=== PATIENT | female | born 1955 | race Caucasian/White ===

== ENCOUNTER 2023-03-14 10:54 | Inpatient (IN) ==
[2023-03-14] MEDS ORDERED: MORPHINE SULFATE INJ 4 MG ONE ×2 (11:05→12:33)
[2023-03-14] MEDS ORDERED: ZOFRAN INJ 4 MG VIAL ONE ×2 (11:05→12:33)
[2023-03-14] MEDS ORDERED: NS 500 ML IV 500 ML IV ONE ×2 (11:05→11:06)
[2023-03-14] MEDS ORDERED: MORPHINE SULFATE INJ 4 MG IVP ONE ×2 (11:06→12:32)
[2023-03-14] MEDS ORDERED: ZOFRAN INJ 4 MG VIAL IVP ONE ×2 (11:06→12:32)
--- NOTE | 2023-03-14 11:06 | ED.ABDFE ---
HPI Time Seen Time Seen by Provider: 03/14/23 11:05 Complaint Doctors Chief Complaint Comments: 67 y/o female brought in by EMS for evaluation. Started feeling poorly 2 days ago, with onset of nausea, voiting and diarrhea. Symptoms have persisted. Now with diffuse abdominal pain. + sharp, constant, does not radiate. + worse with moving, palpation. Nothing makes it better. Denies fever, chills, URI symptoms, urinary difficulties. + distant h/o cholecystectomy, hysterectomy. Reviewed Nurses Notes Review: Yes Source History Provided: Patient Mode of arrival Mode of Arrival: EMS PMH PMH Past Medical History: Anxiety, Arthritis and Depression Past Surgical History: Yes Surgical History: , Hysterectomy and Ortho Surgery Family History Family Medical History: Diabetes Mellitus, MD, Coronary Artery Disease, Heart Failure and Hypertension Social History Does patient currently use any type of tobacco product: Yes Type of Tobacco Use: Cigarettes Packs per day or dips/chews per day: 2 PPD Do you use any recreational Drugs:: No ROS Review of Systems Constitutional: Weakness Eyes: No Symptoms Reported ENTM: No Symptoms Reported Respiratoy: No Symptoms Reported Cardiovascular: No Symptoms Reported Gastrointestinal/Abdominal: See HPI Genitourinary: No Symptoms Reported Neurological: Weakness Musculoskeletal: No Symptoms Reported Integumentary: No Symptoms Reported Hematologic/Lymphatic: No Symptoms Reported All Other Systems: Reviewed and Negative PE Vital Signs Vitals: Vital Signs Temperature 99.1 F Pulse Rate 112 Pulse Rate 112 Pulse Rate 112 Pulse Rate 111 Pulse Rate 111 Pulse Rate 111 Pulse Rate 111 Pulse Rate 105 Pulse Rate 103 Pulse Rate 100 Pulse Rate 100 Pulse Rate 99 Pulse Rate 95 Pulse Rate 102 Pulse Rate 100 Pulse Rate 105 Pulse Rate 101 Pulse Rate 101 Respiratory Rate 20 Respiratory Rate 20 Respiratory Rate 20 Respiratory Rate 20 Respiratory Rate 20 Respiratory Rate 20 Blood Pressure 158/85 Blood Pressure 148/82 Blood Pressure 161/78 Blood Pressure 161/78 Blood Pressure 158/77 Blood Pressure 186/98 Blood Pressure 194/101 Blood Pressure 223/102 Blood Pressure 194/146 Blood Pressure 206/100 Blood Pressure 184/92 Blood Pressure 206/100 O2 Sat by Pulse Oximetry 94 O2 Sat by Pulse Oximetry 94 O2 Sat by Pulse Oximetry 93 O2 Sat by Pulse Oximetry 93 O2 Sat by Pulse Oximetry 93 O2 Sat by Pulse Oximetry 95 O2 Sat by Pulse Oximetry 96 O2 Sat by Pulse Oximetry 96 O2 Sat by Pulse Oximetry 95 O2 Sat by Pulse Oximetry 95 O2 Sat by Pulse Oximetry 95 O2 Sat by Pulse Oximetry 96 O2 Sat by Pulse Oximetry 96 O2 Sat by Pulse Oximetry 93 O2 Sat by Pulse Oximetry 88 O2 Sat by Pulse Oximetry 92 O2 Sat by Pulse Oximetry 92 O2 Sat by Pulse Oximetry 92 03/14/23 10:55 03/14/23 11:16 03/14/23 10:55 Temperature 99.1 F Pulse Rate 101 H Respiratory Rate 20 20 Respiratory Effort Normal Non-Labored O2 Sat by Pulse Oximetry 92 L Oxygen Delivery Method Room Air Oxygen Flow Rate Blood Pressure 206/100 184/92 Blood Pressure Mean 132 Weight 139 lb 03/14/23 10:58 03/14/23 11:00 03/14/23 11:00 Temperature Pulse Rate 101 H 105 H Respiratory Rate Respiratory Effort O2 Sat by Pulse Oximetry 92 L 92 L Oxygen Delivery Method Oxygen Flow Rate Blood Pressure 206/100 Blood Pressure Mean 144 Weight 03/14/23 11:16 03/14/23 12:00 03/14/23 11:30 Temperature Pulse Rate 100 H Respiratory Rate 20 Respiratory Effort O2 Sat by Pulse Oximetry 88 L Oxygen Delivery Method Oxygen Flow Rate Blood Pressure 194/146 Blood Pressure Mean 166 Weight 03/14/23 11:30 03/14/23 11:45 03/14/23 11:46 Temperature Pulse Rate 102 H 95 H Respiratory Rate 20 Respiratory Effort Normal Non-Labored O2 Sat by Pulse Oximetry 93 L 96 Oxygen Delivery Method Oxygen Flow Rate Blood Pressure Blood Pressure Mean Weight 03/14/23 12:00 03/14/23 12:05 03/14/23 12:05 Temperature Pulse Rate 99 H 100 H Respiratory Rate Respiratory Effort O2 Sat by Pulse Oximetry 96 95 Oxygen Delivery Method Oxygen Flow Rate Blood Pressure 223/102 Blood Pressure Mean 146 Weight 03/14/23 12:06 03/14/23 12:06 03/14/23 12:15 Temperature Pulse Rate 100 H Respiratory Rate Respiratory Effort O2 Sat by Pulse Oximetry 95 Oxygen Delivery Method Oxygen Flow Rate Blood Pressure 194/101 186/98 Blood Pressure Mean 142 136 Weight 03/14/23 12:15 03/14/23 12:39 03/14/23 12:38 Temperature Pulse Rate 103 H 105 H Respiratory Rate 20 Respiratory Effort Normal Non-Labored O2 Sat by Pulse Oximetry 95 96 Oxygen Delivery Method Nasal Cannula Oxygen Flow Rate 2 Blood Pressure Blood Pressure Mean Weight 03/14/23 12:52 03/14/23 13:07 03/14/23 13:15 Temperature Pulse Rate 111 H 111 H Respiratory Rate Respiratory Effort O2 Sat by Pulse Oximetry 96 95 Oxygen Delivery Method Oxygen Flow Rate Blood Pressure 158/77 Blood Pressure Mean 111 Weight 03/14/23 13:15 03/14/23 13:30 03/14/23 13:30 Temperature Pulse Rate 111 H 111 H Respiratory Rate Respiratory Effort O2 Sat by Pulse Oximetry 93 L 93 L Oxygen Delivery Method Oxygen Flow Rate Blood Pressure 161/78 Blood Pressure Mean 112 Weight 03/14/23 13:30 03/14/23 13:36 03/14/23 13:45 Temperature Pulse Rate 112 H Respiratory Rate Respiratory Effort O2 Sat by Pulse Oximetry 93 L Oxygen Delivery Method Oxygen Flow Rate Blood Pressure 161/78 148/82 Blood Pressure Mean 112 110 Weight 03/14/23 13:48 03/14/23 14:00 03/14/23 13:09 Temperature Pulse Rate 112 H 112 H Respiratory Rate 20 Respiratory Effort Normal Non-Labored O2 Sat by Pulse Oximetry 94 L 94 L Oxygen Delivery Method Oxygen Flow Rate Blood Pressure Blood Pressure Mean Weight 03/14/23 14:00 Temperature Pulse Rate Respiratory Rate Respiratory Effort O2 Sat by Pulse Oximetry Oxygen Delivery Method Nasal Cannula Oxygen Flow Rate 2 Blood Pressure 158/85 Blood Pressure Mean 116 Weight General General Appearance: Alert and Other (appears uncomfortable) Eyes Eye exam: Normal Appearance ENT ENT Exam: Mucous Membranes Moist Neck Neck Exam: Normal Inspection Respiratory Respiratory Exam: Normal Lung Sounds Bilat; negative Accessory Muscle Use or Respiratory Distress Cardiovascular Cardiovascular Exam: Regular Rate, Normal Rhythm and Normal Heart Sounds Abdominal Exam Abdominal Exam: Soft and Tenderness (worse across lower abdomen, with guarding and rebound, LLQ > RLQ. + increased tympany. ) Back Back Exam: Normal Inspection Extremeties Extremities Exam: Normal Inspection; negative Edema Neurologic Neurological Exam: Alert, Oriented X3 and CN II-XII Intact; negative Motor Sensory Deficit Skin Skin Exam: Warm and Dry COURSE Treatment Treatment: 67 y/o female with 2 days of N/V/D and worsening abdominal pain. W/u initiated. Pt given IV fluids, IV morphine/zofran. BP remaining elevated. Pt given IV hydralazine. CXR with bilateral increased marking, c/w chronic interstitial fibrotic changes, but radiology reads as possible , worsening bilateral pneumonia. Pt given IV rocephin to cover. Labs show an elevated lipase, alk phos. CT abd/pelvis ordered, has changes c/w acute pancreatitis, but also numerous hypodense liver lesions, c/w metastatic disease. + severe lumbar bones c/w bony mets. Pt admitted for treatment of acute pancreatitis. Discussed admission with Dr York prior to CT, tammy give him update of abnormal CT findings. ROR Labs Reviewed Laboratory Results Reviewed?: Yes Result Diagrams: 03/14/23 11:23 03/14/23 11:23 Laboratory: WBC 18.2 X10^3/uL (3.6-10.0) H 03/14/23 11:23 RBC 3.82 X10^6/uL (3.5-5.4) 03/14/23 11:23 Hgb 12.5 g/dL (12.0-16.0) 03/14/23 11:23 Hct 37.2 % (36.0-47.0) 03/14/23 11:23 MCV 97.2 fL (80.0-100.0) 03/14/23 11:23 MCH 32.8 pg (27.0-34.0) 03/14/23 11:23 MCHC 33.7 g/dL (33.0-35.0) 03/14/23 11:23 RDW 14.3 % (11.6-16.5) 03/14/23 11:23 Plt Count 358 X10^3/uL (150.0-450.0) 03/14/23 11:23 MPV 7.8 fL (7.4-11.0) 03/14/23 11:23 Neut % (Auto) 87.3 % (42.0-75.0) H 03/14/23 11:23 Lymph % (Auto) 6.8 % (21.0-51.0) L 03/14/23 11:23 Graves % (Auto) 5.8 % (0.0-13.0) 03/14/23 11:23 Eos % (Auto) 0.0 % (0.9-2.9) L 03/14/23 11:23 Baso % (Auto) 0.1 % (0.2-1.0) L 03/14/23 11:23 Neut # (Auto) 15.8 x10^3/uL (2.2-4.8) H 03/14/23 11:23 Lymph # (Auto) 1.2 X10^3/uL (1.3-2.9) L 03/14/23 11:23 Graves # (Auto) 1.1 x10^3/uL (0.3-0.8) H 03/14/23 11:23 Eos # (Auto) 0.0 x10^3/uL (0.0-0.2) 03/14/23 11:23 Baso # (Auto) 0.0 X10^3/uL (0.0-0.1) 03/14/23 11:23 Absolute Nucleated RBC 0.0 /100WBC 03/14/23 11:23 Sodium 138 mmol/L (136-145) 03/14/23 11:23 Corrected Sodium TNP 03/14/23 11:23 Potassium 5.0 mmol/L (3.5-5.1) 03/14/23 11:23 Chloride 103 mmol/L (98-107) 03/14/23 11:23 Carbon Dioxide 25.2 mmol/L (21-32) 03/14/23 11:23 BUN 27 mg/dL (7-18) H 03/14/23 11:23 Creatinine 0.98 mg/dL (0.55-1.02) 03/14/23 11:23 Est GFR (MDRD) Af Amer > 60 (>60) 03/14/23 11:23 Est GFR (MDRD) Non-Af 60 (>60) 03/14/23 11:23 Glucose 103 mg/dL (65-99) H 03/14/23 11:23 Calcium 8.8 mg/dL (8.5-10.1) 03/14/23 11:23 Corrected Calcium 9.6 mg/dL (8.5-10.1) 03/14/23 11:23 Total Bilirubin 0.30 mg/dL (0.2-1.0) 03/14/23 11:23 AST 59 Units/L (15-37) H 03/14/23 11:23 ALT 57 Units/L (12-78) 03/14/23 11:23 Alkaline Phosphatase 296 Units/L (46-116) H 03/14/23 11:23 Total Protein 7.5 g/dL (6.4-8.2) 03/14/23 11:23 Albumin 3.0 g/dL (3.4-5.0) L 03/14/23 11:23 Globulin 4.5 g/dL (2.5-4.5) 03/14/23 11:23 Albumin/Globulin Ratio 0.7 Ratio (1.1-2.1) L 03/14/23 11:23 Lipase 5869 Units/L (73-393) H 03/14/23 11:23 XRAY XRAY Interpreted by: Both X-ray Results: see remarks in "Course" Opioid Opioid Risk Tool Total: 0 Total Score Risk Category: Low Risk Copyright: Sanjeev MARIA predicting aberrant behaviors Discharge Plan Diagnosis Discharge Problem: Acute pancreatitis, Metastatic disease Discharge Plan Patient Disposition: ADMITTED INPATIENT Condition: Stable Orders to Discharge Patient Discharge Orders: Transfer (Routine); Ordered 03/14/23 Ordered By: Luke Barakat
[2023-03-14 11:34] LABS: BASOPHILS % (AUTO) 0.1 % (0.2-1.0); HEMATOCRIT 37.2 % (36.0-47.0); HEMOGLOBIN 12.5 g/dL (12.0-16.0); LYMPHOCYTES # (AUTO) 1.2 X10^3/uL (1.3-2.9); LYMPHOCYTES % (AUTO) 6.8 % (21.0-51.0); MEAN CORPUSCULAR HEMOGLOBIN 32.8 pg (27.0-34.0); MEAN CORPUSCULAR HGB CONC 33.7 g/dL (33.0-35.0); MEAN CORPUSCULAR VOLUME 97.2 fL (80.0-100.0); MEAN PLATELET VOLUME 7.8 fL (7.4-11.0); MONOCYTES # (AUTO) 1.1 x10^3/uL (0.3-0.8); MONOCYTES % (AUTO) 5.8 % (0.0-13.0); NEUTROPHILS # (AUTO) 15.8 x10^3/uL (2.2-4.8); NEUTROPHILS % (AUTO) 87.3 % (42.0-75.0); PLATELET COUNT 358 X10^3/uL (150.0-450.0); RED BLOOD COUNT 3.82 X10^6/uL (3.5-5.4); RED CELL DISTRIBUTION WIDTH 14.3 % (11.6-16.5); WHITE BLOOD COUNT 18.2 X10^3/uL (3.6-10.0)
--- NOTE | 2023-03-14 11:39 | RAD ---
HISTORYVOMITING, COPDSTUDYCHEST, 1 VIEWCOMPARISONNone availableFINDINGSThe trachea is midline. The cardiac silhouette is enlarged with a tortuous thoracic aorta. Increased interstitial changes of the right and left tim thorax are observed with developing airspace opacities of the right infrahilar region in the right upper lobe. The findings are consistent with multifocal pneumonia with superimposed chronic interstitial lung disease. The bony thorax is unremarkable.IMPRESSIONMultifocal pneumonia with superimposed chronic interstitial lung changes. Continued follow-up is recommendedElectronically signed by: JUAN RODRIGES (Mar 14, 2023 11:38:05)
[2023-03-14] MEDS ORDERED: ROCEPHIN VIAL 1 GRAM 1 G in NS 100 ML IV 100 ML IV ONE (11:47)
[2023-03-14] MEDS ORDERED: ROCEPHIN VIAL 1 GRAM ONE (11:48)
[2023-03-14] MEDS ORDERED: NS 100 ML IV 100 ML ONE (11:48)
[2023-03-14] MEDS ORDERED: APRESOLINE INJ 20 MG VIAL IVP ONE (12:07)
[2023-03-14] MEDS ORDERED: APRESOLINE INJ 20 MG VIAL ONE (12:07)
[2023-03-14 12:11] LABS: ALANINE AMINOTRANSFERASE 57 Units/L (12-78); ALKALINE PHOSPHATASE 296 Units/L (46-116); ASPARTATE AMINO TRANSFERASE 59 Units/L (15-37); BLOOD UREA NITROGEN 27 mg/dL (7-18); CALCIUM 8.8 mg/dL (8.5-10.1); CARBON DIOXIDE 25.2 mmol/L (21-32); CHLORIDE 103 mmol/L (98-107); COR CA(FOR HYPOALB) 9.6 mg/dL (8.5-10.1); CREATININE 0.98 mg/dL (0.55-1.02); GLUCOSE 103 mg/dL (65-99); SODIUM 138 mmol/L (136-145); TOTAL PROTEIN 7.5 g/dL (6.4-8.2); eGFR NON BLACK RACES 60 (>60)
[2023-03-14 12:22] LABS: LIPASE 5869 Units/L (73-393)
[2023-03-14] MEDS ORDERED: D5 1/2 NS 1,000 ML 1,000 ML IV ONE (14:13)
[2023-03-14] MEDS ORDERED: ZANAFLEX PO PRN (14:20)
[2023-03-14] MEDS: D5 1/2 NS 1,000 ML 1,000 ML IV SCH (14:26)
--- NOTE | 2023-03-14 14:40 | CT ---
HISTORYNausea, abdominal painSTUDYCT abdomen pelvis with contrastTechnique: Axial post-contrast images with coronal and sagittal reformats. Dose reduction procedures were used with mA/kv adjusted for body size.COMPARISONNoneFINDINGSThere is a small right pleural effusion present. The lung bases are clear with the exception of some interstitial lung changes in the right lung base. There is a small pericardial effusion maximum with 10 mm. The liver is diffusely involved with multiple areas of decreased attenuation ranging in size from 1 cm to 4.1 cm. Findings are most consistent with diffuse hepatic metastatic disease. Patient is status post cholecystectomy. The spleen and left adrenal gland are normal. There is an indeterminate 3.6 x 2.6 cm right adrenal mass possibly a metastasis. This could be further evaluated with MRI or at the time of PET-CT if the patient has a PET-CT. The pancreas is overall prominent but not grossly enlarged. There does appear to be some peripancreatic inflammation and fluid suspicious for developing acute pancreatitis. The kidneys are unobstructed and without stones or masses. No ureteral calculi are identified. Calcific atherosclerotic changes present in a nondilated abdominal aorta. No intraperitoneal or retroperitoneal lymphadenopathy of significance is identified. The appendix is not identified with absolute certainty. There are no secondary signs of appendicitis present. There are no findings suggestive of enteritis, colitis, or diverticulitis. Examination of the pelvis demonstrated no evidence for pelvic masses, pelvic fluid, or pelvic lymphadenopathy. No bladder abnormality is identified. There are multiple small blastic lesions involving the pelvis and lumbar spine with a larger blastic lesion in L2. Findings are suspicious for bony metastatic disease.IMPRESSIONFindings consistent with acute pancreatitis without evidence for abscess, pseudocyst or necrosisDiffuse severe hepatic metastatic diseaseFindings suggestive of diffuse blastic bony metastatic disease3.6 x 2.6 cm indeterminate right adrenal mass possibly a metastatic focusSmall pericardial effusion maximum with 10 mmSmall right pleural effusionElectronically signed by: MARIUM FLANNERY (Mar 14, 2023 14:39:04)
[2023-03-14] MEDS ORDERED: KLONOPIN TAB 1 MG PO PRN (15:05)
[2023-03-14] MEDS: ROCEPHIN VIAL 1 GRAM 1 G in NS 100 ML IV 100 ML IV SCH (15:17)
[2023-03-14] MEDS: MORPHINE SULFATE INJ 4 MG IVP PRN ×2 (17:16→21:02)
[2023-03-14] MEDS: ZOFRAN INJ 4 MG VIAL IVP PRN (17:17)
[2023-03-14] MEDS: XOPENEX 1.25 MG/3 ML NEBULE NEB PRN (20:51)
[2023-03-14] MEDS: NEURONTIN CAP 300 MG PO SCH (21:55)
[2023-03-15] MEDS: XOPENEX 1.25 MG/3 ML NEBULE NEB PRN ×5 (05:12→22:07)
[2023-03-15 05:30] LABS: BASOPHILS % (AUTO) 0.3 % (0.2-1.0); EOSINOPHILS % (AUTO) 0.1 % (0.9-2.9); HEMATOCRIT 32.9 % (36.0-47.0); LYMPHOCYTES % (AUTO) 6.5 % (21.0-51.0); MEAN CORPUSCULAR HGB CONC 33.5 g/dL (33.0-35.0); MEAN CORPUSCULAR VOLUME 98.5 fL (80.0-100.0); MEAN PLATELET VOLUME 8.4 fL (7.4-11.0); MONOCYTES # (AUTO) 0.9 x10^3/uL (0.3-0.8); MONOCYTES % (AUTO) 6.1 % (0.0-13.0); PLATELET COUNT 242 X10^3/uL (150.0-450.0); RED BLOOD COUNT 3.34 X10^6/uL (3.5-5.4); RED CELL DISTRIBUTION WIDTH 14.8 % (11.6-16.5); WHITE BLOOD COUNT 14.9 X10^3/uL (3.6-10.0)
[2023-03-15] MEDS: NEURONTIN CAP 300 MG PO SCH ×4 (05:36→21:20)
[2023-03-15] MEDS: MORPHINE SULFATE INJ 4 MG IVP PRN ×3 (05:40→14:21)
[2023-03-15 05:53] LABS: ALANINE AMINOTRANSFERASE 44 Units/L (12-78); ALBUMIN 2.4 g/dL (3.4-5.0); ALKALINE PHOSPHATASE 229 Units/L (46-116); ASPARTATE AMINO TRANSFERASE 54 Units/L (15-37); BLOOD UREA NITROGEN 21 mg/dL (7-18); CALCIUM 8.2 mg/dL (8.5-10.1); CARBON DIOXIDE 24.5 mmol/L (21-32); CHLORIDE 103 mmol/L (98-107); COR CA(FOR HYPOALB) 9.5 mg/dL (8.5-10.1); CREATININE 0.92 mg/dL (0.55-1.02); GLUCOSE 92 mg/dL (65-99); POTASSIUM 4.6 mmol/L (3.5-5.1); SODIUM 137 mmol/L (136-145); TOTAL PROTEIN 6.3 g/dL (6.4-8.2); eGFR NON BLACK RACES > 60 (>60)
[2023-03-15 07:35] LABS: BILIRUBIN,URINE NEGATIVE (NEGATIVE); BLOOD/HEMOGLOBIN,URINE NEGATIVE (NEGATIVE); GLUCOSE, URINE NEGATIVE (NEGATIVE); KETONES,URINE NEGATIVE (NEGATIVE); LEUKOCYTE ESTERASE ,URINE NEGATIVE (NEGATIVE); NITRITES,URINE NEGATIVE (NEGATIVE); PROTEIN,URINE 2+ (NEGATIVE); UROBILINOGEN,URINE NORMAL (NORMAL)
[2023-03-15] MEDS: D5 1/2 NS 1,000 ML 1,000 ML IV SCH ×5 (07:47→23:43)
[2023-03-15 07:49] LABS: APPEARANCE,URINE CLEAR (CLEAR); BACTERIA,URINE TRACE /HPF (NEGATIVE); COLOR,URINE YELLOW (YELLOW); RBC,URINE 0-2 /HPF (0-3); SQUAMOUS EPITHELIAL CELL,UR RARE /HPF (NEGATIVE)
[2023-03-15] MEDS ORDERED: OMNIPAQUE 350 mg/mL 100 mL BTL 100 ML ONE (08:25)
[2023-03-15] MEDS: ROCEPHIN VIAL 1 GRAM 1 G in NS 100 ML IV 100 ML IV SCH (09:28)
--- NOTE | 2023-03-15 09:59 | CT ---
HISTORYLung cancer, metastatic diseaseSTUDYCT chest with contrastTechnique: Axial post-contrast images with coronal and sagittal reformats. Dose reduction procedures were used with mA/kv adjusted for body size.COMPARISONNoneFINDINGSExamination of the mediastinum demonstrated no evidence for mediastinal masses. Abnormal sub carinal lymphadenopathy is identified as is abnormal left hilar lymphadenopathy both likely metastatic in origin. There is a small right pleural effusion present. Those portions of the upper abdominal organs again demonstrated diffuse hepatic metastatic disease and a right adrenal mass which, although it is low in attenuation, there are some areas of increased attenuation within it making it indeterminate. MRI would be of further diagnostic value. Re-demonstrated is acute pancreatitis. Scattered blastic lesions are present throughout the thoracic spine suspicious for blastic bony metastatic disease. Thrombus is identified in a segmental arterial branch supplying the left lower lobe consistent with pulmonary thromboembolic disease. There is a pericardial effusion maximum width now 13 mm. Examination of the lung guadarrama demonstrated an irregular mass lesion in the right upper lobe measuring approximately 3.1 by 1.6 by 2.1 cm likely representing primary lung neoplasm. Diffuse interstitial changes throughout the right lung could indicate pneumonitis, atypical pneumonia, or interstitial or lymphangitic metastatic disease. Some less prominent interstitial changes are present on the left with a similar differential. There is a 6.8 mm left upper lobe pulmonary nodule which could represent a metastatic focus.IMPRESSIONIntraluminal thrombus identified in a segmental branch to the left lower lobe indicative of pulmonary thromboembolic diseaseIrregular 3.1 x 1.6 x 2.1 cm right upper lobe mass lesion likely primary lung malignancy.Sub carinal and left hilar lymphadenopathy likely metastatic in originDiffuse interstitial lung changes throughout the right lung which could represent pneumonitis, atypical pneumonia, or interstitial or lymphangitic spread of metastatic disease6.8 mm left upper lobe pulmonary nodule possibly a metastatic focusPericardial effusion maximum with 13 mmSmall right pleural effusionDiffuse hepatic metastatic diseaseRe-demonstrated is acute pancreatitisDiffuse blastic bony metastatic diseaseElectronically signed by: MARIUM FLANNERY (Mar 15, 2023 09:57:57)
[2023-03-15] MEDS ORDERED: LOVENOX INJ 40 MG SYR SC SCH (10:00)
[2023-03-15] MEDS: ZOFRAN INJ 4 MG VIAL IVP PRN (10:22)
[2023-03-15 11:15] LABS: INR 1.25 (0.8-1.3)
[2023-03-15] MEDS ORDERED: HEPARIN SODIUM INJ 5000 UNITS IVP ONE ×2 (11:20→19:40)
[2023-03-15] MEDS: HEPARIN SODIUM IN D5W 25,000 UNITS/500 ML BAG IV PRN (12:03)
--- NOTE | 2023-03-15 14:23 | DR.H&P ---
H&P History & Physical for Day of: H&P Date: 03/15/23 Chief Complaint Chief Complaint: Feeling poorly 2 days ago with nausea, vomiting and diarrhea. Allergies Allergies Allergy/AdvReac Type Severity Reaction Status Date / Time codeine Allergy Unknown Verified 03/22/22 15:05 ibuprofen Allergy Unknown Verified 03/22/22 15:06 naproxen [Aleve] Allergy Unknown Verified 03/22/22 15:06 sulfamethoxazole Allergy Unknown Verified 03/22/22 15:05 [Sulfamethoxazole-Trimethoprim] trimethoprim Allergy Unknown Verified 03/22/22 15:05 [Sulfamethoxazole-Trimethoprim] Sulfa-Mag *MINERALS & Allergy Unknown Uncoded 03/22/22 15:05 ELECTROL History of Present Illness History of Present Illness: This is a pleasant 67-year-old white female well-known to me. [facility] and [facility] yesterday after being sick for the previous 2 days with associated nausea, vomiting and diarrhea. Symptoms have persisted and now she is currently having abdominal pain that is sharp in the epigastrium and does not radiate. Pain is worse with movement and palpation nothing makes it better at this time. She does have a previous history of cholecystectomy and hysterectomy. Past Medical History Past Medical History: Anxiety, Arthritis and Depression Additional Medical History: Hx Bipolar Jeanie, PTSD, Fibromyalgia Past Surgical History Surgical History: , Cholecystectomy and Hysterectomy Family History Family Medical History: Hypertension Social History Does patient currently use any type of tobacco product: Yes Have you used tobacco products in the last 12 months: Yes Type of Tobacco Use: Cigarettes How many years tobacco product used: 20 Does any household member use tobacco: Yes Alcohol Use: None Drug Use: None Medications Home Medications: Home Medications Medication Instructions Recorded Confirmed Type Clonazepam 1 mg PO QID PRN 07/01/14 03/14/23 History gabapentin 300 mg capsule 900 mg PO TID 03/14/23 03/14/23 History promethazine 25 mg tablet 25 mg PO Q8H PRN 03/14/23 03/14/23 History quetiapine 400 mg tablet 400 mg PO QPM 03/14/23 03/14/23 History Labs Result Diagrams: 03/15/23 04:40 03/15/23 04:40 Labs: 03/15/23 05:08 Sputum - Expectorated Sputum - Final Laboratory WBC 14.9 X10^3/uL (3.6-10.0) H 03/15/23 04:40 RBC 3.34 X10^6/uL (3.5-5.4) L 03/15/23 04:40 Hgb 11.0 g/dL (12.0-16.0) L 03/15/23 04:40 Hct 32.9 % (36.0-47.0) L 03/15/23 04:40 MCV 98.5 fL (80.0-100.0) 03/15/23 04:40 MCH 33.0 pg (27.0-34.0) 03/15/23 04:40 MCHC 33.5 g/dL (33.0-35.0) 03/15/23 04:40 RDW 14.8 % (11.6-16.5) 03/15/23 04:40 Plt Count 242 X10^3/uL (150.0-450.0) 03/15/23 04:40 MPV 8.4 fL (7.4-11.0) 03/15/23 04:40 Neut % (Auto) 87.0 % (42.0-75.0) H 03/15/23 04:40 Lymph % (Auto) 6.5 % (21.0-51.0) L 03/15/23 04:40 Mcdonald % (Auto) 6.1 % (0.0-13.0) 03/15/23 04:40 Eos % (Auto) 0.1 % (0.9-2.9) L 03/15/23 04:40 Baso % (Auto) 0.3 % (0.2-1.0) 03/15/23 04:40 Neut # (Auto) 13.0 x10^3/uL (2.2-4.8) H 03/15/23 04:40 Lymph # (Auto) 1.0 X10^3/uL (1.3-2.9) L 03/15/23 04:40 Mcdonald # (Auto) 0.9 x10^3/uL (0.3-0.8) H 03/15/23 04:40 Eos # (Auto) 0.0 x10^3/uL (0.0-0.2) 03/15/23 04:40 Baso # (Auto) 0.0 X10^3/uL (0.0-0.1) 03/15/23 04:40 Absolute Nucleated RBC 0.0 /100WBC 03/15/23 04:40 PT 15.5 SECONDS (11.8-14.3) 03/15/23 11:00 INR Target Range - 03/15/23 11:00 INR 1.25 (0.8-1.3) 03/15/23 11:00 APTT 27.4 SECONDS (22.9-36.5) 03/15/23 11:00 PTT Comment - 03/15/23 11:00 Sodium 137 mmol/L (136-145) 03/15/23 04:40 Corrected Sodium TNP 03/15/23 04:40 Potassium 4.6 mmol/L (3.5-5.1) 03/15/23 04:40 Chloride 103 mmol/L (98-107) 03/15/23 04:40 Carbon Dioxide 24.5 mmol/L (21-32) 03/15/23 04:40 BUN 21 mg/dL (7-18) H 03/15/23 04:40 Creatinine 0.92 mg/dL (0.55-1.02) 03/15/23 04:40 Est GFR (MDRD) Af Amer > 60 (>60) 03/15/23 04:40 Est GFR (MDRD) Non-Af > 60 (>60) 03/15/23 04:40 Glucose 92 mg/dL (65-99) 03/15/23 04:40 Calcium 8.2 mg/dL (8.5-10.1) L 03/15/23 04:40 Corrected Calcium 9.5 mg/dL (8.5-10.1) 03/15/23 04:40 Total Bilirubin 0.20 mg/dL (0.2-1.0) 03/15/23 04:40 AST 54 Units/L (15-37) H 03/15/23 04:40 ALT 44 Units/L (12-78) 03/15/23 04:40 Alkaline Phosphatase 229 Units/L (46-116) H 03/15/23 04:40 Total Protein 6.3 g/dL (6.4-8.2) L 03/15/23 04:40 Albumin 2.4 g/dL (3.4-5.0) L 03/15/23 04:40 Globulin 3.9 g/dL (2.5-4.5) 03/15/23 04:40 Albumin/Globulin Ratio 0.6 Ratio (1.1-2.1) L 03/15/23 04:40 Lipase 5869 Units/L (73-393) H 03/14/23 11:23 Specimen Type Catherized urine 03/15/23 07:20 Urine Color Yellow (YELLOW) 03/15/23 07:20 Urine Appearance Clear (CLEAR) 03/15/23 07:20 Urine pH 5.0 (5.0 - 8.0) 03/15/23 07:20 Ur Specific [place] 1.015 (1.000-1.030) 03/15/23 07:20 Urine Protein 2+ (NEGATIVE) 03/15/23 07:20 Urine Glucose (UA) Negative (NEGATIVE) 03/15/23 07:20 Urine Ketones Negative (NEGATIVE) 03/15/23 07:20 Urine Blood Negative (NEGATIVE) 03/15/23 07:20 Urine Nitrite Negative (NEGATIVE) 03/15/23 07:20 Urine Bilirubin Negative (NEGATIVE) 03/15/23 07:20 Urine Urobilinogen Normal (NORMAL) 03/15/23 07:20 Ur Leukocyte Esterase Negative (NEGATIVE) 03/15/23 07:20 Urine RBC 0-2 /HPF (0-3) 03/15/23 07:20 Urine WBC 0-2 /HPF (0-5) 03/15/23 07:20 Ur Squamous Epith Cells Rare /HPF (NEGATIVE) 03/15/23 07:20 Urine Bacteria Trace /HPF (NEGATIVE) 03/15/23 07:20 Urine Mucus Rare /HPF (NEGATIVE) 03/15/23 07:20 Ur Culture Indicated? No/not indicated 03/15/23 07:20 Review of Systems Constitutional: Weakness and Malaise Eyes: No Symptoms Reported ENT: No Symptoms Reported Respiratory: Cough and SOB with Excertion; denies Hemoptysis Cardiovascular: No Symptoms Reported Gastrointestinal: Nausea, Vomiting, Abdominal Pain and Diarrhea; denies Melena or Hematochezia Genitourinary: Retention Musculoskeletal: No Symptoms Reported Skin: No Symptoms Reported Neurological: No Symptoms Reported Physical Exam Vital Signs: Vital Signs Temperature 98.0 F Temperature 98.8 F Pulse Rate [Right Radial] 106 Pulse Rate 113 Pulse Rate 117 Pulse Rate 118 Pulse Rate 111 Pulse Rate 112 Pulse Rate 111 Pulse Rate 109 Pulse Rate 110 Pulse Rate 113 Pulse Rate 112 Pulse Rate 113 Pulse Rate 112 Respiratory Rate 33 Respiratory Rate 34 Respiratory Rate 30 Respiratory Rate 14 Respiratory Rate 42 Respiratory Rate 38 Respiratory Rate 24 Respiratory Rate 34 Respiratory Rate 36 Respiratory Rate 32 Respiratory Rate 31 Respiratory Rate 20 Respiratory Rate 20 Respiratory Rate 18 Respiratory Rate 20 Blood Pressure [Right Arm] 94/53 Blood Pressure 122/59 O2 Sat by Pulse Oximetry 92 O2 Sat by Pulse Oximetry 92 O2 Sat by Pulse Oximetry 91 O2 Sat by Pulse Oximetry 95 O2 Sat by Pulse Oximetry 95 O2 Sat by Pulse Oximetry 95 O2 Sat by Pulse Oximetry 96 O2 Sat by Pulse Oximetry 95 O2 Sat by Pulse Oximetry 90 O2 Sat by Pulse Oximetry 93 O2 Sat by Pulse Oximetry 92 O2 Sat by Pulse Oximetry 87 O2 Sat by Pulse Oximetry 91 03/15/23 10:23 03/15/23 10:54 03/15/23 10:54 Temperature Pulse Rate 112 H Respiratory Rate 20 Respiratory Depth Normal Respiratory Effort Normal Non-Labored Normal Respiratory Pattern Normal O2 Sat by Pulse Oximetry 87 L Oxygen Delivery Method Room Air Oxygen Flow Rate 3 FIO2% 32 Blood Pressure Blood Pressure Mean Weight 03/15/23 10:53 03/15/23 10:55 03/15/23 11:00 Temperature 98.0 F Pulse Rate 113 H 112 H Respiratory Rate 20 31 H 32 H Respiratory Depth Respiratory Effort Normal Non-Labored Respiratory Pattern O2 Sat by Pulse Oximetry 92 L 93 L Oxygen Delivery Method Oxygen Flow Rate FIO2% Blood Pressure Blood Pressure Mean Weight 03/15/23 11:15 03/15/23 11:30 03/15/23 11:46 Temperature Pulse Rate 113 H 110 H 109 H Respiratory Rate 36 H 34 H 24 Respiratory Depth Respiratory Effort Respiratory Pattern O2 Sat by Pulse Oximetry 90 L 95 96 Oxygen Delivery Method Oxygen Flow Rate FIO2% Blood Pressure Blood Pressure Mean Weight 03/15/23 12:00 03/15/23 12:07 03/15/23 12:07 Temperature Pulse Rate 111 H 112 H Respiratory Rate 38 H 42 H Respiratory Depth Respiratory Effort Respiratory Pattern O2 Sat by Pulse Oximetry 95 95 Oxygen Delivery Method Oxygen Flow Rate FIO2% Blood Pressure 122/59 Blood Pressure Mean 81 Weight 03/15/23 12:15 03/15/23 12:30 03/15/23 12:45 Temperature Pulse Rate 111 H 118 H 117 H Respiratory Rate 14 30 H 34 H Respiratory Depth Respiratory Effort Respiratory Pattern O2 Sat by Pulse Oximetry 95 91 L 92 L Oxygen Delivery Method Oxygen Flow Rate FIO2% Blood Pressure Blood Pressure Mean Weight 03/15/23 13:00 03/15/23 13:00 03/15/23 11:27 Temperature Pulse Rate 113 H Respiratory Rate 33 H Respiratory Depth Normal Respiratory Effort Normal Respiratory Pattern Normal O2 Sat by Pulse Oximetry 92 L Oxygen Delivery Method Oxygen Flow Rate FIO2% Blood Pressure Blood Pressure Mean Weight 132 lb 4.438 oz Oriented: Normal, Time, Person and Place Eyes: Normal Ear: Normal Nose: Normal Respiratory: Rhonchi Throughout Cardiovascular: Normal Auscultation: Bowel Sounds: Normal Tenderness: Epigastric and Moderate Skin: Normal Musculoskeletal: Normal Psychiatric: Normal Mood Description: Calm Affect: Normal Speech Pattern: Clear and Appropriate Assessment/Plan (1) Acute pancreatitis: Status: Acute Plan: Make patient n.p.o., IV hydration and pain control. (2) Metastatic disease: Narrative Support Text: When patient had her CT of abdomen and pelvis yesterday universally found multiple liver mets, right adrenal gland lesion and bony met lesions in the pelvic bones and lumbar spine. Patient does smoke 2 packs of cigarettes per day I suspect primary lung cancer could be in the lungs. Status: Acute Plan: lungs today with IV contrast. (3) Epigastric abdominal pain: Status: Acute Plan: Pain control. (4) Nausea & vomiting: Status: Acute Plan: Ondansetron as needed. (5) Bipolar I disorder with jeanie: Status: Chronic Plan: Continue as needed clonazepam 4 times daily as needed. (6) Depression: Narrative Support Text: Resume quetiapine 400 mg every afternoon. Status: None (7) Hypothyroidism: Status: None Review H&P Reviewed: Yes Patient was examined?: Yes
[2023-03-15] MEDS ORDERED: DOPAMINE IV PREMIX 400 MG/250 ML 400 MG/250 ML BAG IV PRN (14:35)
[2023-03-15] MEDS: PROTONIX INJ 40 MG VIAL IVP SCH ×2 (16:10→20:35)
[2023-03-15 16:19] LABS: HEMATOCRIT 32.3 % (36.0-47.0); HEMOGLOBIN 10.6 g/dL (12.0-16.0)
[2023-03-15] MEDS ORDERED: LEVOPHED 8 MG/250 ML IV *PREMIX 8 MG/250 ML PLAST..BAG IV PRN (16:30)
[2023-03-16] MEDS: XOPENEX 1.25 MG/3 ML NEBULE NEB PRN ×2 (02:31→05:39)
[2023-03-16 02:37] LABS: ALANINE AMINOTRANSFERASE 37 Units/L (12-78); ALKALINE PHOSPHATASE 214 Units/L (46-116); ASPARTATE AMINO TRANSFERASE 75 Units/L (15-37); BASOPHILS # (AUTO) 0.1 X10^3/uL (0.0-0.1); BASOPHILS % (AUTO) 0.3 % (0.2-1.0); BLOOD UREA NITROGEN 18 mg/dL (7-18); CALCIUM 7.7 mg/dL (8.5-10.1); CARBON DIOXIDE 26.1 mmol/L (21-32); CHLORIDE 103 mmol/L (98-107); COR CA(FOR HYPOALB) 9.3 mg/dL (8.5-10.1); CREATININE 0.95 mg/dL (0.55-1.02); EOSINOPHILS % (AUTO) 0.1 % (0.9-2.9); GLUCOSE 100 mg/dL (65-99); HEMATOCRIT 28.2 % (36.0-47.0); HEMOGLOBIN 9.5 g/dL (12.0-16.0); LYMPHOCYTES # (AUTO) 1.3 X10^3/uL (1.3-2.9); LYMPHOCYTES % (AUTO) 8.5 % (21.0-51.0); MEAN CORPUSCULAR HEMOGLOBIN 32.9 pg (27.0-34.0); MEAN CORPUSCULAR HGB CONC 33.6 g/dL (33.0-35.0); MEAN CORPUSCULAR VOLUME 97.8 fL (80.0-100.0); MEAN PLATELET VOLUME 8.4 fL (7.4-11.0); MONOCYTES % (AUTO) 6.5 % (0.0-13.0); NEUTROPHILS # (AUTO) 13.1 x10^3/uL (2.2-4.8); NEUTROPHILS % (AUTO) 84.6 % (42.0-75.0); PLATELET COUNT 213 X10^3/uL (150.0-450.0); POTASSIUM 3.9 mmol/L (3.5-5.1); RED BLOOD COUNT 2.89 X10^6/uL (3.5-5.4); RED CELL DISTRIBUTION WIDTH 14.6 % (11.6-16.5); SODIUM 137 mmol/L (136-145); TOTAL PROTEIN 5.6 g/dL (6.4-8.2); WHITE BLOOD COUNT 15.5 X10^3/uL (3.6-10.0); eGFR NON BLACK RACES > 60 (>60)
[2023-03-16] MEDS: D5 1/2 NS 1,000 ML 1,000 ML IV SCH ×3 (04:42→14:00)
[2023-03-16] MEDS: NEURONTIN CAP 300 MG PO SCH ×2 (05:24→14:00)
[2023-03-16] MEDS: PROTONIX INJ 40 MG VIAL IVP SCH (09:32)
[2023-03-16] MEDS: ROCEPHIN VIAL 1 GRAM 1 G in NS 100 ML IV 100 ML IV SCH (09:32)
[2023-03-16] MEDS: DILAUDID INJ IVP PRN ×2 (09:33→13:54)
[2023-03-16] MEDS: HEPARIN SODIUM IN D5W 25,000 UNITS/500 ML BAG IV PRN (13:35)
[2023-03-16 16:17] VITALS: BP 133/63; PULSE 111; RESP 31; TEMP 98.1; O2SAT 100
== END 2023-03-16 16:45 | disposition short-term general hospital (02) | DRG 439 ==
LOC: ER 10:54 → MED/SURG 14:15 → ICU 03-15 10:35
PROVIDERS: ADMIT Family Medicine; ATTEND Family Medicine
DX: K85.90 Acute pancreatitis without necrosis or infection, unspecified; C34.90 Malignant neoplasm of unspecified part of unspecified bronchus or lung; R11.2 Nausea with vomiting, unspecified; R10.13 Epigastric pain; E03.8 Other specified hypothyroidism; J44.9 Chronic obstructive pulmonary disease, unspecified; F31.10 Bipolar disorder, current episode manic without psychotic features, unspecified; R79.1 Abnormal coagulation profile; C79.9 Secondary malignant neoplasm of unspecified site